=== PATIENT | female | born 1960 | race Caucasian/White ===

== ENCOUNTER → 2017-01-26 | Outpatient (CLI) | payer OTHER ==
[~2017-01-26] VITALS: Ht 152.4 cm; Wt 54.4 kg
== END ==
LOC: OPSV 13:48
DX: J45.40 Moderate persistent asthma, uncomplicated (principal)
CPT/HCPCS: 96372; J2357

== ENCOUNTER → 2017-02-07 | Outpatient (CLI) | payer OTHER ==
[~2017-02-07] VITALS: Ht 152.4 cm; Wt 54.4 kg
== END ==
LOC: OPSV 09:00
DX: J45.40 Moderate persistent asthma, uncomplicated (principal)
CPT/HCPCS: 96372; J2357

== ENCOUNTER → 2017-02-28 | Outpatient (CLI) | payer MEDICARE ==
[~2017-02-28] VITALS: Ht 152.4 cm; Wt 54.4 kg
== END ==
LOC: OPSV 02-25 11:00
DX: J45.40 Moderate persistent asthma, uncomplicated (principal)
CPT/HCPCS: 96372; J2357

== ENCOUNTER → 2017-03-21 | Outpatient (CLI) | payer MEDICARE ==
[~2017-03-21] VITALS: Ht 152.4 cm; Wt 54.4 kg
== END ==
LOC: OPSV 03-14 11:00
DX: J45.40 Moderate persistent asthma, uncomplicated (principal)
CPT/HCPCS: 96372; J2357

== ENCOUNTER → 2017-04-26 | Outpatient (CLI) | payer MEDICARE, OTHER ==
[~2017-04-26] VITALS: Ht 152.4 cm; Wt 54.4 kg
== END ==
LOC: OPSV 14:50
DX: J45.40 Moderate persistent asthma, uncomplicated (principal)
CPT/HCPCS: 96372; J2357

== ENCOUNTER → 2017-05-10 | Outpatient (CLI) | payer MEDICARE, OTHER ==
[~2017-05-10] VITALS: Ht 152.4 cm; Wt 54.4 kg
== END ==
LOC: OPSV 14:51
DX: J45.40 Moderate persistent asthma, uncomplicated (principal)
CPT/HCPCS: 96372; J2357

== ENCOUNTER → 2020-11-18 | Outpatient (CLI) | payer MEDICARE, OTHER ==
[~2020-11-18] VITALS: Ht 152.4 cm; Wt 49.9 kg
[~2020-11-18] MED LIST: ALLEGRA ALLERGY60 MG PO; DULERA 200 MCG8.8 GM INH; IPRAT-ALBUT 0.5-3 ML INH; LISINOPRIL10 MG PO; OMNICEF 300 MG300 MG PO; PREDNISONE 10 M10 MG PO; PROAIR HFA8.5 GM INH; PROTONIX40 MG PO
== END ==
LOC: OPSV 10:42
DX: J45.40 Moderate persistent asthma, uncomplicated (principal)
CPT/HCPCS: 96372; J2357

== ENCOUNTER → 2020-12-09 | Outpatient (CLI) | payer MEDICARE, OTHER | LOC: OPSV 12-02 12:00 | DX: J45.40 Moderate persistent asthma, uncomplicated (principal) | CPT/HCPCS: 96372; J2357 ==

== ENCOUNTER → 2020-12-23 | Outpatient (CLI) | payer MEDICARE, OTHER ==
[~2020-12-23] VITALS: Ht 152.4 cm; Wt 49.9 kg
== END ==
LOC: OPSV 12:00
DX: J45.40 Moderate persistent asthma, uncomplicated (principal)
CPT/HCPCS: 96372; J2357

== ENCOUNTER → 2021-01-13 | Outpatient (CLI) | payer MEDICARE, OTHER ==
[~2021-01-13] VITALS: Ht 152.4 cm; Wt 49.9 kg
== END ==
LOC: OPSV 01-06 12:00
DX: J45.40 Moderate persistent asthma, uncomplicated (principal)
CPT/HCPCS: 96372; J2357

== ENCOUNTER → 2021-01-27 | Outpatient (CLI) | payer MEDICARE, OTHER | LOC: OPSV 12:00 | DX: J45.40 Moderate persistent asthma, uncomplicated (principal) | CPT/HCPCS: 96372; J2357 ==

== ENCOUNTER → 2021-02-10 | Outpatient (CLI) | payer MEDICARE, OTHER ==
[~2021-02-10] VITALS: Ht 152.4 cm; Wt 49.9 kg
== END ==
LOC: OPSV 12:00
DX: J45.40 Moderate persistent asthma, uncomplicated (principal)
CPT/HCPCS: 96372; J2357

== ENCOUNTER → 2021-02-24 | Outpatient (CLI) | payer MEDICARE, OTHER | LOC: OPSV 12:00 | DX: J45.40 Moderate persistent asthma, uncomplicated (principal) | CPT/HCPCS: 96372; J2357 ==

== ENCOUNTER → 2021-03-10 | Outpatient (CLI) | payer MEDICARE, OTHER ==
[~2021-03-10] VITALS: Ht 152.4 cm; Wt 49.9 kg
== END ==
LOC: OPSV 12:00
DX: J45.40 Moderate persistent asthma, uncomplicated (principal)
CPT/HCPCS: 96372; J2357

== ENCOUNTER → 2021-04-03 | Outpatient (CLI) | payer MEDICARE, OTHER ==
[~2021-04-03] VITALS: Ht 152.4 cm; Wt 49.9 kg
== END ==
LOC: OPSV 03-31 12:00
DX: J45.40 Moderate persistent asthma, uncomplicated (principal)
CPT/HCPCS: 96372; J2357

== ENCOUNTER → 2021-04-16 | Outpatient (CLI) | payer MEDICARE, OTHER ==
[~2021-04-16] VITALS: Ht 152.4 cm; Wt 49.9 kg
== END ==
LOC: OPSV 12:00
DX: J45.40 Moderate persistent asthma, uncomplicated (principal)
CPT/HCPCS: 96372; J2357

== ENCOUNTER → 2021-04-30 | Outpatient (CLI) | payer MEDICARE, OTHER ==
[~2021-04-30] VITALS: Ht 152.4 cm; Wt 49.9 kg
== END ==
LOC: OPSV 11:48
DX: J45.40 Moderate persistent asthma, uncomplicated (principal)
CPT/HCPCS: 96372; J2357

== ENCOUNTER → 2021-05-21 | Outpatient (CLI) | payer MEDICARE, OTHER ==
[~2021-05-21] VITALS: Ht 152.4 cm; Wt 49.9 kg
[~2021-05-21] MED LIST changes: +HYDROCODON-ACE1 EAC4 PO; +IBU600 MG PO; +METOPROLOL SUCC25 MG PO; +MONTELUKAST SOD10 MG PO; +TUDORZA INH; +XOLAIR150 MG/1 M SQ
== END ==
LOC: OPSV 10:23
DX: J45.40 Moderate persistent asthma, uncomplicated (principal)
CPT/HCPCS: 96372; J2357

== ENCOUNTER → 2021-06-04 | Outpatient (CLI) | payer MEDICARE, OTHER ==
[~2021-06-04] VITALS: Ht 152.4 cm; Wt 49.9 kg
== END ==
LOC: OPSV 11:51
DX: J45.40 Moderate persistent asthma, uncomplicated (principal)
CPT/HCPCS: 96372; J2357

== ENCOUNTER → 2021-06-26 | Outpatient (CLI) | payer MEDICARE, OTHER ==
[~2021-06-26] VITALS: Ht 152.4 cm; Wt 49.9 kg
== END ==
LOC: OPSV 11:49
DX: J45.40 Moderate persistent asthma, uncomplicated (principal)
CPT/HCPCS: 96372; J2357

== ENCOUNTER → 2021-07-09 | Outpatient (CLI) | payer MEDICARE, OTHER ==
[~2021-07-09] VITALS: Ht 152.4 cm; Wt 49.9 kg
[~2021-07-09] MED LIST changes: -HYDROCODON-ACE1 EAC4 PO; -IBU600 MG PO; -METOPROLOL SUCC25 MG PO; -MONTELUKAST SOD10 MG PO; -TUDORZA INH; -XOLAIR150 MG/1 M SQ
== END ==
LOC: OPSV 11:41
DX: J45.40 Moderate persistent asthma, uncomplicated (principal)
CPT/HCPCS: 96372; J2357

== ENCOUNTER → 2021-07-23 | Outpatient (CLI) | payer MEDICARE, OTHER | LOC: OPSV 07-22 12:00 | DX: J45.40 Moderate persistent asthma, uncomplicated (principal) | CPT/HCPCS: 96372; J2357 ==

== ENCOUNTER → 2021-08-06 | Outpatient (CLI) | payer MEDICARE, OTHER ==
[~2021-08-06] VITALS: Ht 152.4 cm; Wt 49.9 kg
[~2021-08-06] MED LIST changes: +HYDROCODON-ACE1 EAC4 PO
== END ==
LOC: OPSV 11:59
DX: J45.40 Moderate persistent asthma, uncomplicated (principal)
CPT/HCPCS: 96372; J2357

== ENCOUNTER 2021-08-09 20:17 | Emergency (ER) | payer MEDICARE, OTHER ==
[~2021-08-09 20:17] MED LIST changes: -HYDROCODON-ACE1 EAC4 PO
[2021-08-09] MEDS ORDERED: HYDROCODON-ACE1 EAC4 PO (22:18)
[2021-08-13] MEDS ORDERED: IBU600 MG PO (11:07)
[2021-08-13] MEDS ORDERED: MONTELUKAST SOD10 MG PO (11:07)
[2021-08-13] MEDS ORDERED: TUDORZA INH (11:08)
[2021-08-13] MEDS ORDERED: METOPROLOL SUCC25 MG PO (11:09)
[2021-08-13] MEDS ORDERED: XOLAIR150 MG/1 M SQ (11:11)
== END 2021-08-09 23:00 | disposition home or self-care (01) ==
LOC: ER1 20:17
DX: S52.532A Colles' fracture of left radius, initial encounter for closed fracture (principal); I10 Essential (primary) hypertension; Z23 Encounter for immunization; W01.0XXA Fall on same level from slipping, tripping and stumbling without subsequent striking against object, initial encounter; Y92.009 Unspecified place in unspecified non-institutional (private) residence as the place of occurrence of the external cause
CPT/HCPCS: 25605; 73100; 73110; 90714; 96372; 99283; J2270

== ENCOUNTER → 2021-08-20 | Outpatient (CLI) | payer MEDICARE, OTHER ==
[~2021-08-20] VITALS: Ht 152.4 cm; Wt 49.9 kg
[~2021-08-20] MED LIST changes: +HYDROCODON-ACE1 EAC4 PO; +IBU600 MG PO; +METOPROLOL SUCC25 MG PO; +MONTELUKAST SOD10 MG PO; +TUDORZA INH; +XOLAIR150 MG/1 M SQ
== END ==
LOC: OPSV 10:39
DX: J45.40 Moderate persistent asthma, uncomplicated (principal)
CPT/HCPCS: 96372; J2357

== ENCOUNTER → 2021-09-03 | Outpatient (CLI) | payer MEDICARE, OTHER ==
[~2021-09-03] VITALS: Ht 152.4 cm; Wt 49.9 kg
== END ==
LOC: OPSV 12:00
DX: J45.40 Moderate persistent asthma, uncomplicated (principal)
CPT/HCPCS: 96372; J2357

== ENCOUNTER → 2021-09-17 | Outpatient (CLI) | payer MEDICARE, OTHER ==
[~2021-09-17] VITALS: Ht 152.4 cm; Wt 49.9 kg
== END ==
LOC: OPSV 11:13
DX: J45.40 Moderate persistent asthma, uncomplicated (principal)
CPT/HCPCS: 96372; J2357

== ENCOUNTER → 2021-10-01 | Outpatient (CLI) | payer MEDICARE, OTHER ==
[~2021-10-01] VITALS: Ht 152.4 cm; Wt 49.9 kg
== END ==
LOC: OPSV 10:32
DX: J45.40 Moderate persistent asthma, uncomplicated (principal)
CPT/HCPCS: 96372; J2357

== ENCOUNTER → 2021-10-20 | Outpatient (CLI) | payer MEDICARE, OTHER ==
[~2021-10-20] VITALS: Ht 152.4 cm; Wt 49.9 kg
== END ==
LOC: OPSV 11:55
DX: J45.40 Moderate persistent asthma, uncomplicated (principal)
CPT/HCPCS: 96372; J2357

== ENCOUNTER → 2022-01-26 | Outpatient (CLI) | payer MEDICARE, OTHER ==
[~2022-01-26] VITALS: Ht 152.4 cm; Wt 49.9 kg
== END ==
LOC: OPSV 12:00
DX: J45.40 Moderate persistent asthma, uncomplicated (principal)
CPT/HCPCS: 96372; J2357

== ENCOUNTER → 2022-02-09 | Outpatient (CLI) | payer MEDICARE, OTHER ==
[~2022-02-09] VITALS: Ht 152.4 cm; Wt 49.9 kg
== END ==
LOC: OPSV 10:57
DX: J45.40 Moderate persistent asthma, uncomplicated (principal)
CPT/HCPCS: 96372; J2357

== ENCOUNTER → 2022-02-23 | Outpatient (CLI) | payer MEDICARE, OTHER ==
[~2022-02-23] VITALS: Ht 152.4 cm; Wt 49.9 kg
== END ==
LOC: OPSV 12:00
DX: N18.9 Chronic kidney disease, unspecified (principal); D63.1 Anemia in chronic kidney disease; J45.40 Moderate persistent asthma, uncomplicated
CPT/HCPCS: 96372; J2357

== ENCOUNTER → 2022-03-09 | Outpatient (CLI) | payer MEDICARE, OTHER | LOC: OPSV 12:00 | DX: J45.40 Moderate persistent asthma, uncomplicated (principal) | CPT/HCPCS: 96372; J2357 ==

== ENCOUNTER → 2022-03-23 | Outpatient (CLI) | payer MEDICARE, OTHER ==
[~2022-03-23] VITALS: Ht 152.4 cm; Wt 49.9 kg
== END ==
LOC: OPSV 12:00
DX: J45.40 Moderate persistent asthma, uncomplicated (principal)
CPT/HCPCS: 96372; J2357

== ENCOUNTER → 2022-04-06 | Outpatient (CLI) | payer MEDICARE, OTHER ==
[~2022-04-06] VITALS: Ht 152.4 cm; Wt 49.9 kg
== END ==
LOC: OPSV 12:00
DX: J45.40 Moderate persistent asthma, uncomplicated (principal)
CPT/HCPCS: 96372; J2357

== ENCOUNTER → 2022-04-20 | Outpatient (CLI) | payer MEDICARE, OTHER ==
[~2022-04-20] VITALS: Ht 152.4 cm; Wt 49.9 kg
== END ==
LOC: OPSV 10:18
DX: J45.40 Moderate persistent asthma, uncomplicated (principal)
CPT/HCPCS: 96372; J2357

== ENCOUNTER → 2022-05-11 | Outpatient (CLI) | payer MEDICARE, OTHER ==
[~2022-05-11] VITALS: Ht 152.4 cm; Wt 49.9 kg
== END ==
LOC: OPSV 05-04 12:00
DX: J45.40 Moderate persistent asthma, uncomplicated (principal)
CPT/HCPCS: 96372; J2357

== ENCOUNTER → 2022-05-31 | Outpatient (CLI) | payer MEDICARE, OTHER ==
[~2022-05-31] VITALS: Ht 152.4 cm; Wt 49.9 kg
== END ==
LOC: OPSV 05-25 12:00
DX: J45.40 Moderate persistent asthma, uncomplicated (principal)
CPT/HCPCS: 96372; J2357

== ENCOUNTER → 2022-06-14 | Outpatient (CLI) | payer MEDICARE, OTHER | LOC: OPSV 12:00 | DX: J45.40 Moderate persistent asthma, uncomplicated (principal) | CPT/HCPCS: 96372; J2357 ==

== ENCOUNTER → 2022-06-28 | Outpatient (CLI) | payer MEDICARE, OTHER ==
[~2022-06-28] VITALS: Ht 152.4 cm; Wt 49.9 kg
== END ==
LOC: OPSV 12:00
DX: J45.40 Moderate persistent asthma, uncomplicated (principal)
CPT/HCPCS: 96372; J2357

== ENCOUNTER → 2022-07-19 | Outpatient (CLI) | payer MEDICARE, OTHER | LOC: OPSV 07-12 12:00 | DX: J45.40 Moderate persistent asthma, uncomplicated (principal) | CPT/HCPCS: 96372; J2357 ==

== ENCOUNTER → 2022-08-02 | Outpatient (CLI) | payer MEDICARE, OTHER ==
[~2022-08-02] VITALS: Ht 152.4 cm; Wt 49.9 kg
== END ==
LOC: OPSV 11:58
DX: J45.40 Moderate persistent asthma, uncomplicated (principal)
CPT/HCPCS: 96372; J2357

== ENCOUNTER → 2022-08-16 | Outpatient (CLI) | payer MEDICARE, OTHER | LOC: OPSV 11:55 | DX: J45.40 Moderate persistent asthma, uncomplicated (principal) | CPT/HCPCS: 96372; J2357 ==